=== PATIENT | female | born 1985 | race Caucasian/White ===

== ENCOUNTER 2020-05-05 19:28 | Emergency (ER) | payer OTHER ==
[~2020-05-05 19:28] MED LIST: BENTYL 10MG CAP10 MG PO; CEFUROXIME500 MG PO; DELSYM30 MG/5 ML PO; K-DUR TAB 20 M20 MEQ PO; MACROBID 100 M100 MG PO; NEURONTIN300 MG PO; ORTHO-CYCLEN 21 EACH PO; ZOFRAN4 MG PO
== END 2020-05-05 20:52 | disposition home or self-care (01) ==
LOC: ER1 19:28
DX: T19.2XXA Foreign body in vulva and vagina, initial encounter (principal); Z90.49 Acquired absence of other specified parts of digestive tract
CPT/HCPCS: 99283

== ENCOUNTER 2021-05-25 19:42 | Emergency (ER) | payer OTHER ==
[2021-05-25] MEDS ORDERED: IBUPROFEN800 MG PO (21:28)
== END 2021-05-25 21:40 | disposition home or self-care (01) ==
LOC: ER1 19:42
DX: S43.401A Unspecified sprain of right shoulder joint, initial encounter (principal); S46.911A Strain of unspecified muscle, fascia and tendon at shoulder and upper arm level, right arm, initial encounter; S50.01XA Contusion of right elbow, initial encounter; F17.200 Nicotine dependence, unspecified, uncomplicated; W19.XXXA Unspecified fall, initial encounter
CPT/HCPCS: 73030; 73080; 99283